=== PATIENT | female | born 1965 | race Caucasian/White ===

== ENCOUNTER 2019-06-15 20:07 | Emergency (ER) | payer MEDICAID ==
[~2019-06-15] VITALS: Ht 160 cm; Wt 57.0 kg
[2019-06-15 21:20] VITALS: BP 161/98
== END 2019-06-16 00:31 | disposition left against medical advice (07) ==
LOC: ER 20:07
DX: R68.89 Other general symptoms and signs (principal); Z53.21 Procedure and treatment not carried out due to patient leaving prior to being seen by health care provider

== ENCOUNTER 2020-03-02 03:28 | Emergency (ER) | payer MEDICAID ==
[~2020-03-02] VITALS: Ht 154.9 cm; Wt 51.0 kg
[2020-03-02] MEDS ORDERED: DIPHENHYDRAMINE 25MG CAPSULE PO ONE (03:45)
[2020-03-02] MEDS ORDERED: IBUPROFEN 600MG TABLET PO ONE (03:45)
[2020-03-02 04:47] VITALS: BP 169/61
== END 2020-03-02 05:33 | disposition home or self-care (01) ==
LOC: ER 03:28
DX: S50.861A Insect bite (nonvenomous) of right forearm, initial encounter (principal); S80.862A Insect bite (nonvenomous), left lower leg, initial encounter; S80.861A Insect bite (nonvenomous), right lower leg, initial encounter; L03.113 Cellulitis of right upper limb; I11.9 Hypertensive heart disease without heart failure; W57.XXXA Bitten or stung by nonvenomous insect and other nonvenomous arthropods, initial encounter; Y93.89 Activity, other specified; Y92.89 Other specified places as the place of occurrence of the external cause; Y99.8 Other external cause status
CPT/HCPCS: 99283; Q0163; 99281